=== PATIENT | female | born 1930 | race Caucasian/White ===

== ENCOUNTER 2019-04-04 18:17 | Emergency (ER) | payer MEDICARE ==
[2019-04-04 18:39] LABS: ABSOLUTE EOSINOPHILS # (AUTO) 0.2 10^3/uL (0.0-0.6); ABSOLUTE LYMPHOCYTES (AUTO) 1.8 10^3/uL (0.5-4.7); ABSOLUTE MONOCYTES (AUTO) 0.5 10^3/uL (0.1-1.4); ABSOLUTE NEUT (AUTO) 4.3 10^3/uL (1.7-8.2); BASOPHILS % (AUTO) 0.6 % (0-2); EOSINOPHILS % (AUTO) 3.2 % (0-6); HEMATOCRIT 38.6 % (36.0-47.0); HEMOGLOBIN 12.6 g/dL (12.0-15.5); LYMPHOCYTES % (AUTO) 26.4 % (13-45); MEAN CORPUSCULAR HEMOGLOBIN 29.5 pg (27.0-33.4); MEAN CORPUSCULAR HGB CONC 32.6 g/dL (32.0-36.0); MEAN CORPUSCULAR VOLUME 91 fl (80-97); MONOCYTES % (AUTO) 7.5 % (3-13); PLATELET COUNT 183 10^3/uL (150-450); RED BLOOD COUNT 4.26 10^6/uL (3.72-5.28); RED CELL DISTRIBUTION WIDTH 13.9 % (11.5-14.0); SEGMENTED NEUTROPHILS % (AUTO) 62.3 % (42-78); TOTAL CELLS COUNTED % (AUTO) 100 %; WHITE BLOOD COUNT 6.9 10^3/uL (4.0-10.5)
[2019-04-04] MEDS ORDERED: DIPH/PERTUSS(ACELL)/TETANUS VAC/PF 0.5 ML SYR (>=10YO) IM ONE (18:42)
[2019-04-04] MEDS ORDERED: CEFAZOLIN INJ 1 GM VIAL IV ONE (18:42)
[2019-04-04 18:59] LABS: ALBUMIN 3.8 g/dL (3.5-5.0); ALKALINE PHOSPHATASE 96 U/L (38-126); ANION GAP 5 (5-19); ASPARTATE AMINO TRANSFERASE 20 U/L (14-36); BILIRUBIN,TOTAL 0.5 mg/dL (0.2-1.3); BLOOD UREA NITROGEN 14 mg/dL (7-20); CALCIUM 8.7 mg/dL (8.4-10.2); CARBON DIOXIDE 29 mmol/L (22-30); CHLORIDE 103 mmol/L (98-107); GLUCOSE 102 mg/dL (75-110); POTASSIUM 3.8 mmol/L (3.6-5.0); TOTAL PROTEIN 6.4 g/dL (6.3-8.2)
--- NOTE | 2019-04-04 19:09 | RADIOLOGY REPORT (SQ) ---
EXAM DESCRIPTION: FINGER LEFT COMPLETED DATE/TIME: 04/04/2019 6:52 pm REASON FOR STUDY: fall; open fracture COMPARISON: None. NUMBER OF VIEWS: Three views. TECHNIQUE: AP, lateral, and oblique images acquired of the left thumb. LIMITATIONS: None. FINDINGS: MINERALIZATION: Normal. BONES: Fracture at the base of the distal phalanx with dislocation of the interphalangeal joint. No worrisome bone lesions. SOFT TISSUES: No soft tissue swelling. No foreign body. OTHER: No other significant finding. IMPRESSION: FRACTURE AT THE BASE OF THE DISTAL PHALANX OF THE THUMB WITH DISLOCATION OF THE INTERPHA LANGEAL JOINT. TECHNICAL DOCUMENTATION: JOB ID: [id number] [employer]- All Rights Reserved Reading location - IP/workstation name: [email or web address]
--- NOTE | 2019-04-04 19:10 | RADIOLOGY REPORT (SQ) ---
EXAM DESCRIPTION: KNEE LEFT 4 VIEW COMPLETED DATE/TIME: 04/04/2019 6:52 pm REASON FOR STUDY: Trauma COMPARISON: None. NUMBER OF VIEWS: Four views. TECHNIQUE: AP, lateral, and both oblique radiographic images acquired of the left knee. LIMITATIONS: None. FINDINGS: MINERALIZATION: Normal. BONES: No acute fracture or dislocation. Joint space narrowing with osteophytes, particularly on the patella. No worrisome bone lesions. JOINT: No effusion. SOFT TISSUES: No soft tissue swelling. No radio-opaque foreign body. OTHER: No other significant finding. IMPRESSION: DEGENERATIVE CHANGES. NO RADIOGRAPHIC EVIDENCE OF ACUTE INJURY. TECHNICAL DOCUMENTATION: JOB ID: [id number] [employer]- All Rights Reserved Reading location - IP/workstation name: [email or web address]
[2019-04-04] MEDS ORDERED: LIDOCAINE 1% INJ (10 MG/ML) 10 ML MDV INJ ONE (20:12)
[2019-04-04] MEDS ORDERED: MORPHINE SULFATE 10 MG/ML INJ IV ONE (20:25)
--- NOTE | 2019-04-04 21:09 | ER Document Report ---
ED General - General Chief Complaint: Fall Stated Complaint: FALL Time Seen by Provider: 04/04/19 18:33 Primary Care Provider: TETE PEARSON MD [Primary Care Provider] - Follow up as needed TRAVEL OUTSIDE OF THE [place] IN LAST 30 DAYS: No - HPI Notes: Note patient has underlying dementia which limits history. All history comes via her family with whom she lives. 89-year-old female with essentially witnessed fall, isolated injury to her left knee and left thumb. Fell down against the toilet in the bathroom, fell onto her left hand. She is right-hand dominant. Sustained a laceration to her left volar thumb and has obvious deformity to the region. Also complains of sudden onset sharp pain in her left anterolateral and anteromedial knee. Difficulty bearing weight secondary to pain. Normally ambulatory with a walker. No other modifying factors, no other associated symptoms, no other provocative or palliative factors. - Related Data Allergies/Adverse Reactions: No Known Allergies Allergy (Unverified 04/04/19 18:21) Past Medical History - Social History Smoking Status: Unknown if Ever Smoked Family History: Reviewed & Not Pertinent Patient has suicidal ideation: No Patient has homicidal ideation: No - Medical History Notes: As reviewed on the nursing notes otherwise no pertinent positives Review of Systems - Review of Systems Notes: Review of systems as in the history of present illness, otherwise negative x 10 systems. Physical Exam - Vital signs Vitals: Temp Pulse Resp BP 98.2 F 65 14 110/61 04/04/19 18:20 04/04/19 18:20 04/04/19 18:20 04/04/19 18:20 - Notes Notes: General: Well devloped, no acute distress. HEENT: Normocephalic, atraumatic. Pupils equal round reactive to light. Mucosa moist. No JVD. Chest: No trauma, normal excursion. Respiratory: Good air exchange, normal excursion. Cardiac: Regular rhythm Abdomen: Soft, benign. Nondistended. Back: No asymmetry or gross abnormality. Motor: Grossly normal power and tone. Neurologic: Alert, nonfocal. Vascular: Well perfused Skin: No petechiae or purpura Extremities: The left thumb shows obvious dorsal displacement dislocation of the distal phalanx. There is a approximately 2 cm open laceration over the volar IP joint. No bone visible. Bleeding is controlled. Distal sensation is diminished. Cap refill is normal. The left anteromedial knee and anterolateral knee have tenderness with mild swelling. No crepitus, no ligamentous instability. Distal neurovascular exam is intact. Course - Re-evaluation Re-evalutation: 04/04/19 21:10 Elderly female with isolated injury to her left knee and left thumb. Left thumb is highly suspicious for open joint fracture. We will proceed with plain films of the thumb and knee, update tetanus, treat with Ancef, reevaluate. Plain films of the thumb show a volar plate fracture and displacement of the distal phalanx and volar fashion. No foreign body. Plain films of the knee show no acute injury. The patient's laceration and wound repaired as described below with attendant reduction. She is discharged home with a prescription for Keflex, hydrocodone. Case discussed via telephone with Dr. Olmedo from orthopedic surgery who agreed with bedside washout, antibiotics and follow-up in the next 1 or 2 days in clinic. - Vital Signs Vital signs: Temp Pulse Resp BP Pulse Ox 98.2 F 74 14 130/66 H 97 04/04/19 18:20 04/04/19 19:25 04/04/19 19:25 04/04/19 19:25 04/04/19 19:25 - Laboratory Result Diagrams: 04/04/19 18:26 04/04/19 18:26 Laboratory results interpreted by me: 04/04/19 18:26 Est GFR (MDRD) Non-Af 59 L Procedures - Laceration/Wound Repair Left Finger Thumb Wound length (cm): 2 Wound's Depth, Shape: Into muscle Notes: 04/04/19 21:12 After digital block with 1% lidocaine without epinephrine excellent anesthesia was achieved. The wound was irrigated copiously with a large volume of normal saline and explored. No evidence of obvious tenderness, vascular nerve disruption. The joint itself is not visible, but is not visible. Using traction and pressure the displaced fragment is reduced successfully. Wound was then closed using simple interrupted sutures of 5-0 Ethilon, there is good tissue approximation and cosmesis. No complications are noted. Postprocedural x-ray shows good reduction. A total of 2 cm wound closure is achieved 04/04/19 21:13 Discharge - Discharge Clinical Impression: Open fracture of finger Qualifiers: Encounter type: initial encounter Finger: thumb Phalanx: distal Fracture alignment: displaced Laterality: left Qualified Code(s): S62.522B - Displaced fracture of distal phalanx of left thumb, initial encounter for open fracture Condition: Good Disposition: HOME, SELF-CARE Instructions: Fractured Finger ([facility]), Volar Plate Fracture ([facility]), Laceration Care ([facility]) Additional Instructions: You have an open fracture of your left first distal phalanx. You should follow- up with Dr. Olmedo Wednesday or . Prescriptions: Hydrocodone Bit/Acetaminophen [Hydrocodon-Acetaminophen 5-325] 1 each PO Q6 PRN #12 tablet PRN Reason: Cephalexin Monohydrate [Keflex 500 mg Capsule] 500 mg PO Q6H 7 Days #28 capsule Referrals: TETE PEARSON MD [Primary Care Provider] - Follow up as needed HELENA OLMEDO MD [ACTIVE STAFF] - Follow up tomorrow
[2019-04-04 21:28] VITALS: BP 106/88
--- NOTE | 2019-04-04 21:37 | RADIOLOGY REPORT (SQ) ---
XR FINGERS 04/04/2019 at 8:54 PM. CLINICAL STATEMENT: Post reduction COMPARISON: 04/04/2019 at 6:37 PM. FINDINGS: There is reduction of previously seen first digit interphalangeal joint dislocation. There is a minimally displaced fracture of the base of the first distal phalanx. There is anatomic alignment. IMPRESSION: First digit distal phalanx minimally displaced fracture. Previous first digit interphalangeal joint dislocation has been reduced.
--- NOTE | 2019-04-05 11:31 | EKG REPORT ---
SEVERITY:- ABNORMAL ECG - SINUS RHYTHM FIRST DEGREE AV BLOCK NONSPECIFIC T ABNORMALITIES, LATERAL LEADS : Confirmed by: Jose Luis Riggs 05-Apr-2019 11:30:44
== END 2019-04-04 21:29 | disposition home or self-care (01) ==
LOC: ER 18:17
DX: S62.522B Displaced fracture of distal phalanx of left thumb, initial encounter for open fracture (principal); S89.92XA Unspecified injury of left lower leg, initial encounter; W01.198A Fall on same level from slipping, tripping and stumbling with subsequent striking against other object, initial encounter; Y93.89 Activity, other specified
CPT/HCPCS: 93005; 36415; 85025; 80053; 73140; 73564; 90715; 93010; 26755; J0690; J2270; 90471; 96365; 96375; 99284